=== PATIENT | female | born 1945 | race Caucasian/White ===

== ENCOUNTER 2016-05-20 10:41 | Emergency (ER) | payer OTHER ==
--- NOTE | 2016-05-20 11:55 | ED NURSING NOTES ---
Clinical Report - Nurses [facility] [address] [place] [address] 05/20/2016 10:41 [id number] Triage time 10:52 May 20 2016. Acuity: LEVEL 2. Chief Complaint: FALL. Alert. No acute distress. MARII COMA SCORE: [place] Coma Scale: 15- eyes open spontaneously (4); best verbal response- oriented x 4 (5); best motor response- obeys commands (6). --10:57 Sheeba Wing R.N. 10:50 05/20/16. BP: 172/77. HR: 70. RR: 18. O2 saturation: 98%. Temp: 98.2 F. Pain level now 5/10. --10:57 Sheeba Wing R.N. Weight: 91.6 kg stated. Height/Length: 63 inches Per Patient. BMI: 35.8. --10:48 Sheeba Wing R.N. Medications Albuterol Inhalation 2 puffs, PRN. Amitriptyline HCl Oral 150 mg, at bedtime. Atenolol Oral 50 mg, at bedtime. Benazepril HCl Oral (Tablet 20 mg) 1 tablet, bid. Ibuprofen Oral 800 mg, 2x a day/3x/day as needed. Sertraline HCl Oral 100 mg, daily. Simvastatin Oral 40 mg, at bedtime. --10:54 Sheeba Wing R.N. Medication/allergy information source: the patient. --10:57 Sheeba Wing R.N. Allergies Codeine.(itching) --10:54 Sheeba Wing R.N. TraZODone HCl. --10:54 Sheeba Wing R.N. History Arrived by private vehicle. Historian: patient. Accompanied by family. Primary physician (Dr. Aviles). ( Slipped and fell on the ice on the sidewalk while chasing her dog. No LOC, remembers the entire event. PERRL. Swelling on the right side of head.). Location of injuries: right parietal area. This occurred just prior to arrival. 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 Trauma activation: Pre-hospital notification of patient arrival was not received. PAST MEDICAL HX: Has not received seasonal influenza immunization. SOCIAL HX: Never smoker. Alcohol use. No drug use. No infectious disease exposure. FALL RISK ASSESSMENT: Fall risk assessment completed. No fall risk identified. NUTRITIONAL RISK ASSESSMENT: The nutritional risk assessment revealed no deficiencies. FUNCTIONAL ASSESSMENT: Functional assessment: no impairments noted. LEARNING NEEDS ASSESSMENT: The learning needs assessment revealed no barriers. SKIN INTEGRITY ASSESSMENT: Skin integrity risk assessment completed. No skin integrity risk identified. --10:57 Sheeba Wing R.N. PROBLEMS: Atypical Chest Pain. Myofascial Strain. GI Disease. Heart Disease. Asthma. Fall. Sprain. Concussion. Chronic diarrhea. Migraine Headache. Fibromyalgia. Hypercholesterolemia. Hypertension. Hiatal Hernia. Gastroesophageal Reflux Disease. --10:56 Sheeba Wing R.N. Abdominal Pain [RuleOut]. --10:56 Sheeba Wing R.N. ADDITIONAL SURGERIES: Cardiac Procedures. Cholecystectomy. Hysterectomy. Knee Surgery. Left foot excision. Previous Abdominal Surgery. Rt breast biopsy. --10:56 Sheeba Wing R.N. Interventions ID band on patient. To room. --10:57 Sheeba Wing R.N. PHYSICAL ASSESSMENT To room via wheelchair. GENERAL / NEURO / PSYCH: Alert. Oriented X 4. Appears in no acute distress. Marii Coma Scale: 15- eyes open spontaneously (4); best verbal response- oriented x 4 (5); best motor response- obeys commands (6). HEENT: Pupils equal, round and reactive to light. CVS: Capillary refill less than 2 seconds. SKIN: Skin is warm and dry. --12:02 Sheeba Wing R.N. NURSING PROGRESS NOTES Care transferred and report given. --10:57 Sheeba Wing R.N. 12:02 05/20/16. BP: 184/79. HR: 84. RR: 18. O2 saturation: 99%. Pain level now 5/10. --12:03 Sheeba Wing R.N. DISPOSITION / DISCHARGE Condition at departure: unchanged and stable. No learning barriers present. Discharge instructions provided and reviewed with the patient and family. Patient and family verbalized understanding. Written instructions provided in Telugu. The patient was discharged by the physician. She was discharged home and accompanied by family. She left the Emergency Department ambulatory and via private vehicle. Family member driving. --12:45 Sheeba Wing R.N. Departure time: 12:30 May 20 2016. --12:45 Sheeba Wing R.N. Locked/Released at 05/20/2016 12:48 by Sheeba Wing R.N.
--- NOTE | 2016-05-20 11:55 | ED NURSING NOTES ---
Clinical Report - Nurses [facility] [address] [place] [address] 05/20/2016 10:41 [id number] Triage time 10:52 May 20 2016. Acuity: LEVEL 2. Chief Complaint: FALL. Alert. No acute distress. MARII COMA SCORE: [place] Coma Scale: 15- eyes open spontaneously (4); best verbal response- oriented x 4 (5); best motor response- obeys commands (6). --10:57 Sheeba Wing R.N. 10:50 05/20/16. BP: 172/77. HR: 70. RR: 18. O2 saturation: 98%. Temp: 98.2 F. Pain level now 5/10. --10:57 Sheeba Wing R.N. Weight: 91.6 kg stated. Height/Length: 63 inches Per Patient. BMI: 35.8. --10:48 Sheeba Wing R.N. Medications Albuterol Inhalation 2 puffs, PRN. Amitriptyline HCl Oral 150 mg, at bedtime. Atenolol Oral 50 mg, at bedtime. Benazepril HCl Oral (Tablet 20 mg) 1 tablet, bid. Ibuprofen Oral 800 mg, 2x a day/3x/day as needed. Sertraline HCl Oral 100 mg, daily. Simvastatin Oral 40 mg, at bedtime. --10:54 Sheeba Wing R.N. Medication/allergy information source: the patient. --10:57 Sheeba Wing R.N. Allergies Codeine.(itching) --10:54 Sheeba Wing R.N. TraZODone HCl. --10:54 Sheeba Wing R.N. History Arrived by private vehicle. Historian: patient. Accompanied by family. Primary physician (Dr. Aviles). ( Slipped and fell on the ice on the sidewalk while chasing her dog. No LOC, remembers the entire event. PERRL. Swelling on the right side of head.). Location of injuries: right parietal area. This occurred just prior to arrival. 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 Trauma activation: Pre-hospital notification of patient arrival was not received. PAST MEDICAL HX: Has not received seasonal influenza immunization. SOCIAL HX: Never smoker. Alcohol use. No drug use. No infectious disease exposure. FALL RISK ASSESSMENT: Fall risk assessment completed. No fall risk identified. NUTRITIONAL RISK ASSESSMENT: The nutritional risk assessment revealed no deficiencies. FUNCTIONAL ASSESSMENT: Functional assessment: no impairments noted. LEARNING NEEDS ASSESSMENT: The learning needs assessment revealed no barriers. SKIN INTEGRITY ASSESSMENT: Skin integrity risk assessment completed. No skin integrity risk identified. --10:57 Sheeba Wing R.N. PROBLEMS: Atypical Chest Pain. Myofascial Strain. GI Disease. Heart Disease. Asthma. Fall. Sprain. Concussion. Chronic diarrhea. Migraine Headache. Fibromyalgia. Hypercholesterolemia. Hypertension. Hiatal Hernia. Gastroesophageal Reflux Disease. --10:56 Sheeba Wing R.N. Abdominal Pain [RuleOut]. --10:56 Sheeba Wing R.N. ADDITIONAL SURGERIES: Cardiac Procedures. Cholecystectomy. Hysterectomy. Knee Surgery. Left foot excision. Previous Abdominal Surgery. Rt breast biopsy. --10:56 Sheeba Wing R.N. Interventions ID band on patient. To room. --10:57 Sheeba Wing R.N. PHYSICAL ASSESSMENT To room via wheelchair. GENERAL / NEURO / PSYCH: Alert. Oriented X 4. Appears in no acute distress. Marii Coma Scale: 15- eyes open spontaneously (4); best verbal response- oriented x 4 (5); best motor response- obeys commands (6). HEENT: Pupils equal, round and reactive to light. CVS: Capillary refill less than 2 seconds. SKIN: Skin is warm and dry. --12:02 Sheeba Wing R.N. NURSING PROGRESS NOTES Care transferred and report given. --10:57 Sheeba Wing R.N. 12:02 05/20/16. BP: 184/79. HR: 84. RR: 18. O2 saturation: 99%. Pain level now 5/10. --12:03 Sheeba Wing R.N. DISPOSITION / DISCHARGE Condition at departure: unchanged and stable. No learning barriers present. Discharge instructions provided and reviewed with the patient and family. Patient and family verbalized understanding. Written instructions provided in Italian. The patient was discharged by the physician. She was discharged home and accompanied by family. She left the Emergency Department ambulatory and via private vehicle. Family member driving. --12:45 Sheeba Wing R.N. Departure time: 12:30 May 20 2016. --12:45 Sheeba Wing R.N. Locked/Released at 05/20/2016 12:48 by Sheeba Wing R.N.
--- NOTE | 2016-05-20 11:55 | ED CLINICAL REPORT ---
Clinical Report - Physicians/Mid Levels [facility] [address] [place] [address] 05/20/2016 10:41 [id number] Time Seen: 10:57. Arrived- By private vehicle. Historian- patient. HISTORY OF PRESENT ILLNESS Chief Complaint: FALL. Location of injuries- head. The injury occurred just prior to arrival. Fell while running and landed on the ground; slipped. Occurred at home. The patient complains of moderate pain. The patient sustained a blow to the head. No neck pain or loss of consciousness. Not dazed. REVIEW OF SYSTEMS All systems otherwise negative, except as recorded above. PAST HISTORY PCP - LUCIE CONWAY Problems: Atypical Chest Pain. Myofascial Strain. GI Disease. Heart Disease. Asthma. Fall. Sprain. Concussion. Chronic diarrhea. Migraine Headache. Fibromyalgia. Hypercholesterolemia. Hypertension. Hiatal Hernia. Gastroesophageal Reflux Disease. Additional Surgeries: Cardiac Procedures. Cholecystectomy. Hysterectomy. Knee Surgery. Left foot excision. Previous Abdominal Surgery. Rt breast biopsy. Medications: Albuterol Inhalation 2 puffs, PRN. Amitriptyline HCl Oral 150 mg, at bedtime. Atenolol Oral 50 mg, at bedtime. Benazepril HCl Oral (Tablet 20 mg) 1 tablet, bid. Ibuprofen Oral 800 mg, 2x a day/3x/day as needed. Sertraline HCl Oral 100 mg, daily. Simvastatin Oral 40 mg, at bedtime. Allergies: Codeine.(itching) TraZODone HCl. SOCIAL HISTORY Never smoker. Occasional alcohol use. No drug use. Is a local resident. FAMILY HISTORY No significant family medical history. ADDITIONAL NOTES The nursing notes have been reviewed. PHYSICAL EXAM Vital Signs: 05/20/2016 10:50 BP: 172/77. HR: 70. RR: 18. O2 saturation: 98%. Temp: 98.2 F. Have been reviewed. Appearance: Alert. No acute distress. Head: Right parietal area: mild tenderness and swelling and medium ecchymosis. Eyes: Pupils equal, round and reactive to light. EOM intact. ENT: No dental injury. Pharynx normal. Neck: Painless ROM. Non-tender. No vertebral tenderness. CVS: Heart sounds normal. Respiratory: Breath sounds normal. Abdomen: No visible injury. Soft and nontender. Bowel sounds normal. No organomegaly. No mass. Back: No tenderness. ROM normal. Skin: Skin intact. Skin warm and dry. Normal skin color. Normal skin turgor. Extremities: Normal inspection. Pelvis stable. Extremities atraumatic. No lower extremity edema. Neuro: No motor deficit. No sensory deficit. PROGRESS AND PROCEDURES Course of Care: Patient is stable. Patient/family counseled. Old medical records reviewed. Disposition: Discharged. Condition: stable. CLINICAL IMPRESSION Minor closed head injury. No loss of consciousness. Contusion with soft tissue hematoma to the scalp. INSTRUCTIONS Apply ice. Don't apply ice directly to skin and don't use while asleep. No driving or operating machinery while taking medication. Warnings: HEAD INJURY PRECAUTIONS: An observer must check on the patient every 2 hours for the next 24 hours to confirm that the patient responds as expected, is not confused, has no new weakness or numbness, and has no other problems. GENERAL WARNINGS: Return or contact your physician immediately if your condition worsens or changes unexpectedly, if not improving as expected, or if other problems arise. Your Current Medications: CONTINUE TAKING THE FOLLOWING MEDICATIONS: Albuterol Inhalation : 2 puffs PRN. Amitriptyline HCl Oral : 150 mg at bedtime. Atenolol Oral : 50 mg at bedtime. Benazepril HCl Oral : Tablet 20 mg, 1 tablet bid. Ibuprofen Oral : 800 mg 2x a day/3x/day, prn. Sertraline HCl Oral : 100 mg daily. Simvastatin Oral : 40 mg at bedtime. Prescription Medications: Ultram 50 mg: take 1-2 orally every 6 hours as needed for pain. Dispense fifteen (15). No refills. Substitution is permissible. Understanding of the discharge instructions verbalized by patient. (Electronically signed by Hudson Solitario MD 05/22/2016 2:07)
--- NOTE | 2016-05-22 02:07 | ED MED RECONCILIATION SUMMARY ---
Patient: STEVE MORTON [facility] Medication Reconciliation Report [facility] VisitID: [id number] [place] [address] 71y, F Registration Date/Time: 05/20/2016 Weight: 91.6 kg Height/Length: 63 in. BMI: 35.8 ALLERGIES: Codeine, TraZODone HCl The patient's Home Medications are listed below: CONTINUE TAKING THE FOLLOWING MEDICATIONS: Albuterol Inhalation 2 puffs, PRN Amitriptyline HCl Oral 150 mg, at bedtime Atenolol Oral 50 mg, at bedtime Benazepril HCl Oral (20 mg) 1 tablet, bid Ibuprofen Oral 800 mg, 2x a day/3x/day Sertraline HCl Oral 100 mg, daily Simvastatin Oral 40 mg, at bedtime The source(s) of the original Home Medication information: patient The following Medications were given to the patient in the Emergency Department: None. The following Medications were prescribed to the patient: Ultram 50 mg: take 1-2 orally every 6 hours as needed for pain. Dispense fifteen (15). No refills. Substitution is permissible. -- Hudson Solitario MD
--- NOTE | 2016-05-22 02:07 | ED MAR SUMMARY ---
..... Medication Administration Record [facility] [address], [place] [id number] Patient: STEVE MORTON Visit ID: [id number] 71y, F Weight: 91.6 kg Height/Length: 63 in BMI: 35.8 ALLERGIES: Codeine, TraZODone HCl
--- NOTE | 2016-05-22 02:07 | ED MED RECONCILIATION SUMMARY ---
Patient: STEVE MORTON [facility] Medication Reconciliation Report [facility] VisitID: [id number] [place] [address] 71y, F Registration Date/Time: 05/20/2016 Weight: 91.6 kg Height/Length: 63 in. BMI: 35.8 ALLERGIES: Codeine, TraZODone HCl The patient's Home Medications are listed below: CONTINUE TAKING THE FOLLOWING MEDICATIONS: Albuterol Inhalation 2 puffs, PRN Amitriptyline HCl Oral 150 mg, at bedtime Atenolol Oral 50 mg, at bedtime Benazepril HCl Oral (20 mg) 1 tablet, bid Ibuprofen Oral 800 mg, 2x a day/3x/day Sertraline HCl Oral 100 mg, daily Simvastatin Oral 40 mg, at bedtime The source(s) of the original Home Medication information: patient The following Medications were given to the patient in the Emergency Department: None. The following Medications were prescribed to the patient: Ultram 50 mg: take 1-2 orally every 6 hours as needed for pain. Dispense fifteen (15). No refills. Substitution is permissible. -- Hudson Solitario MD
--- NOTE | 2016-05-22 02:07 | ED DISCHARGE INSTRUCTIONS ---
Patient: STEVE MORTON General Instructions [facility] VisitID: [id number] [place] [address] 71y, F Registration Date/Time: 05/20/2016 Minor closed head injury. No loss of consciousness. Contusion with soft tissue hematoma to the scalp. INSTRUCTIONS Apply ice. Don't apply ice directly to skin and don't use while asleep. No driving or operating machinery while taking medication. Warnings: HEAD INJURY PRECAUTIONS: An observer must check on the patient every 2 hours for the next 24 hours to confirm that the patient responds as expected, is not confused, has no new weakness or numbness, and has no other problems. GENERAL WARNINGS: Return or contact your physician immediately if your condition worsens or changes unexpectedly, if not improving as expected, or if other problems arise. Your Current Medications: CONTINUE TAKING THE FOLLOWING MEDICATIONS: Albuterol Inhalation : 2 puffs PRN. Amitriptyline HCl Oral : 150 mg at bedtime. Atenolol Oral : 50 mg at bedtime. Benazepril HCl Oral : Tablet 20 mg, 1 tablet bid. Ibuprofen Oral : 800 mg 2x a day/3x/day, prn. Sertraline HCl Oral : 100 mg daily. Simvastatin Oral : 40 mg at bedtime. Prescription Medications: Ultram 50 mg: take 1-2 orally every 6 hours as needed for pain. Dispense fifteen (15). No refills. Substitution is permissible. Understanding of the discharge instructions verbalized by patient. ADDITIONAL INFORMATION Head Injury With Wake-Up (Adult) You have had a head injury. It does not appear serious at this time. Symptoms of a more serious problem (concussion, bruising, or bleeding in the brain) may appear later. Therefore, watch for the WARNING SIGNS listed below. Home Care: During the next 24 hours someone must stay with you. This person should wake you every 2 hours to check for the signs below. If you have swelling of the face or scalp, apply an ice pack (ice cubes in a plastic bag, wrapped in a towel) for 20 minutes every 1-2 hours until the swelling starts to go down. Do not use aspirin or ibuprofen (Motrin, Advil) after a head injury. You may use acetaminophen (Tylenol) to control pain, unless another pain medicine was prescribed. [NOTE: If you have chronic liver or kidney disease or ever had a stomach ulcer or GI bleeding, talk with your doctor before using these medicines.] For the next 24 hours: Do not take alcohol, sedatives, or medicines that make you sleepy. Do not drive or operate machinery. Avoid strenuous activities. No lifting or straining. If you have had any symptoms of a concussion today (nausea, vomiting, dizziness, confusion, headache, memory loss, or you were knocked out), do not return to sports or any activity that could result in another head injury until all symptoms are gone and you have been cleared by your doctor. A second head injury before fully recovering from the first one can lead to serious brain injury. Follow Up with your doctor if symptoms are not improving after 24 hours, or as directed. [NOTE: A radiologist will review any X-rays or CT scans that were taken. We will notify you of any new findings that may affect your care.] Get Prompt Medical Attention if any of the following WARNING SIGNS occur: Repeated vomiting Severe or worsening headache or dizziness Unusual drowsiness, or unable to awaken as usual Confusion or change in behavior or speech, memory loss, blurred vision Convulsion (seizure) Increasing scalp or face swelling Redness, warmth or pus from the swollen area Fluid drainage or bleeding from the nose or ears Head Injury With Wake-Up (Adult) You have had a head injury. It does not appear serious at this time. Symptoms of a more serious problem (concussion, bruising, or bleeding in the brain) may appear later. Therefore, watch for the WARNING SIGNS listed below. Home Care: During the next 24 hours someone must stay with you. This person should wake you every 2 hours to check for the signs below. If you have swelling of the face or scalp, apply an ice pack (ice cubes in a plastic bag, wrapped in a towel) for 20 minutes every 1-2 hours until the swelling starts to go down. Do not use aspirin or ibuprofen (Motrin, Advil) after a head injury. You may use acetaminophen (Tylenol) to control pain, unless another pain medicine was prescribed. [NOTE: If you have chronic liver or kidney disease or ever had a stomach ulcer or GI bleeding, talk with your doctor before using these medicines.] For the next 24 hours: Do not take alcohol, sedatives, or medicines that make you sleepy. Do not drive or operate machinery. Avoid strenuous activities. No lifting or straining. If you have had any symptoms of a concussion today (nausea, vomiting, dizziness, confusion, headache, memory loss, or you were knocked out), do not return to sports or any activity that could result in another head injury until all symptoms are gone and you have been cleared by your doctor. A second head injury before fully recovering from the first one can lead to serious brain injury. Follow Up with your doctor if symptoms are not improving after 24 hours, or as directed. [NOTE: A radiologist will review any X-rays or CT scans that were taken. We will notify you of any new findings that may affect your care.] Get Prompt Medical Attention if any of the following WARNING SIGNS occur: Repeated vomiting Severe or worsening headache or dizziness Unusual drowsiness, or unable to awaken as usual Confusion or change in behavior or speech, memory loss, blurred vision Convulsion (seizure) Increasing scalp or face swelling Redness, warmth or pus from the swollen area Fluid drainage or bleeding from the nose or ears Tramadol Hydrochloride Oral tablet What is this medicine? TRAMADOL (TRA ma dole) is a pain reliever. It is used to treat moderate to severe pain in adults. How should I use this medicine? Take this medicine by mouth with a full glass of water. Follow the directions on the prescription label. If the medicine upsets your stomach, take it with food or milk. Do not take more medicine than you are told to take. Talk to your electric motor repairing supervisor regarding the use of this medicine in children. Special care may be needed. What side effects may I notice from receiving this medicine? Side effects that you should report to your doctor or health direct care supervisor as soon as possible: allergic reactions like skin rash, itching or hives, swelling of the face, lips, or tongue breathing difficulties, wheezing confusion itching light headedness or fainting spells redness, blistering, peeling or loosening of the skin, including inside the mouth seizures Side effects that usually do not require medical attention (report to your doctor or health direct care supervisor if they continue or are bothersome): constipation dizziness drowsiness headache nausea, vomiting What may interact with this medicine? Do not take this medicine with any of the following medications: MAOIs like Carbex, Eldepryl, Marplan, Nardil, and Parnate This medicine may also interact with the following medications: alcohol or medicines that contain alcohol antihistamines benzodiazepines bupropion carbamazepine or oxcarbazepine clozapine cyclobenzaprine digoxin furazolidone linezolid medicines for depression, anxiety, or psychotic disturbances medicines for migraine headache like almotriptan, eletriptan, frovatriptan, naratriptan, rizatriptan, sumatriptan, zolmitriptan medicines for pain like pentazocine, buprenorphine, butorphanol, meperidine, nalbuphine, and propoxyphene medicines for sleep muscle relaxants naltrexone phenobarbital phenothiazines like perphenazine, thioridazine, chlorpromazine, mesoridazine, fluphenazine, prochlorperazine, promazine, and trifluoperazine procarbazine warfarin What if I miss a dose? If you miss a dose, take it as soon as you can. If it is almost time for your next dose, take only that dose. Do not take double or extra doses. Where should I keep my medicine? Keep out of the reach of children. Store at room temperature between 15 and 30 degrees C (59 and 86 degrees F). Keep container tightly closed. Throw away any unused medicine after the expiration date. What should I tell my health care provider before I take this medicine? They need to know if you have any of these conditions: brain tumor depression drug abuse or addiction head injury if you frequently drink alcohol containing drinks kidney disease or trouble passing urine liver disease lung disease, asthma, or breathing problems seizures or epilepsy suicidal thoughts, plans, or attempt; a previous suicide attempt by you or a family member an unusual or allergic reaction to tramadol, codeine, other medicines, foods, dyes, or preservatives or trying to get breast-feeding What should I watch for while using this medicine? Tell your doctor or health direct care supervisor if your pain does not go away, if it gets worse, or if you have new or a different type of pain. You may develop tolerance to the medicine. Tolerance means that you will need a higher dose of the medicine for pain relief. Tolerance is normal and is expected if you take this medicine for a long time. Do not suddenly stop taking your medicine because you may develop a severe reaction. Your body becomes used to the medicine. This does NOT mean you are addicted. Addiction is a behavior related to getting and using a drug for a non-medical reason. If you have pain, you have a medical reason to take pain medicine. Your doctor will tell you how much medicine to take. If your doctor wants you to stop the medicine, the dose will be slowly lowered over time to avoid any side effects. You may get drowsy or dizzy. Do not drive, use machinery, or do anything that needs mental alertness until you know how this medicine affects you. Do not stand or sit up quickly, especially if you are an older patient. This reduces the risk of dizzy or fainting spells. Alcohol can increase or decrease the effects of this medicine. Avoid alcoholic drinks. You may have constipation. Try to have a bowel movement at least every 2 to 3 days. If you do not have a bowel movement for 3 days, call your doctor or health direct care supervisor. Your mouth may get dry. Chewing sugarless gum or sucking hard candy, and drinking plenty of water may help. Contact your doctor if the problem does not go away or is severe. You have been given the following additional information: HEAD INJURY with Wake-Up (Adult) HEAD INJURY with Wake-Up (Adult) Tramadol Hydrochloride Oral tablet No driving or operating machinery while taking medication. (Electronically signed by Hudson Solitario MD 05/22/2016 2:07)
--- NOTE | 2016-05-22 02:07 | ED MAR SUMMARY ---
..... Medication Administration Record [facility] [address], [place] [id number] Patient: STEVE MORTON Visit ID: [id number] 71y, F Weight: 91.6 kg Height/Length: 63 in BMI: 35.8 ALLERGIES: Codeine, TraZODone HCl
== END 2016-05-20 12:30 | disposition home or self-care (01) ==
LOC: ED SRH 10:41
DX: S00.03XA Contusion of scalp, initial encounter (principal); W00.0XXA Fall on same level due to ice and snow, initial encounter; Y93.02 Activity, running; Y92.009 Unspecified place in unspecified non-institutional (private) residence as the place of occurrence of the external cause; Y99.9 Unspecified external cause status; I10 Essential (primary) hypertension; K21.9 Gastro-esophageal reflux disease without esophagitis; J45.909 Unspecified asthma, uncomplicated; Z79.899 Other long term (current) drug therapy; Z88.5 Allergy status to narcotic agent

== ENCOUNTER 2016-07-04 11:39 | Emergency (ER) | payer OTHER ==
--- NOTE | 2016-07-04 12:28 | DIAGNOSTIC IMAGING REPORT ---
PROCEDURE: XR ANKLE 3 OR 4 VIEWS - RIGHT INDICATION: TRAUMA/INJURY TECHNIQUE: Four views. COMPARISON: None. FINDINGS: Osseous structures and joint spaces are normal. IMPRESSION: 1. Normal right ankle.
--- NOTE | 2016-07-04 13:14 | ED ORDER SUMMARY ---
..... Patient: STEVE MORTON OrderSheet [facility] VisitID: [id number] [address] [place] [address] 71y, F Registration Date/Time: 07/04/2016 ORDER SHEET Weight: 91.6 kg (stated) Allergies: No Known Drug Allergy GENERAL ORDERS: Ankle 3 or 4V Right Urgent (12:06 07/04/2016 Conrad Can) (Ack 12:11 Yeni) (13:30 Monica R.N.) Orthopedic Boot (13:01 07/04/2016 Conrad Can) (Ack 13:14 Yeni) (13:14 Yeni) MEDICATION ORDERS: Hydrocodone-APAP PO 5/325 mg (NOW, HIGH ALERT MEDICATION) (13:12 07/04/2016 Conrad Can) (13:33 Monica R.N.) IV FLUIDS: ORDER SHEET NOTES: [Electronically signed by Jesus Zhang Dr. (13:19 07/04/2016)] [Electronically signed by Evette Hsieh R.N. (13:54 07/04/2016)] [Electronically locked/signed by Evette Hsieh R.N. (13:54 07/04/2016)]
--- NOTE | 2016-07-04 13:14 | ED NURSING NOTES ---
Clinical Report - Nurses [facility] [address] [place] [address] 07/04/2016 11:39 Patient: STEVE MORTON TRIAGE Triage time 1137 AM. Acuity: LEVEL 4. Chief Complaint: FALL DOWN 2 STAIRS while walking, onto a concrete surface and landed on their arms with hands extended and knees (going down the stairs, missed a step). Alert. No acute distress. SEPSIS SCREEN: Sepsis Screen. Negative (no infection suspected/documented). MARII COMA SCORE: Marii Coma Scale: 15- eyes open spontaneously (4); best verbal response- oriented x 4 (5); best motor response- obeys commands (6). --11:52 Evette Hsieh R.N. 11:38 07/04/16. BP: 170/67. HR: 79. RR: 15. O2 saturation: 100% on room air. Temp: 98 F (oral). Pain level now: 11/21. --11:52 Evette Hsieh R.N. Weight: 91.6 kg stated. Height/Length: 63 inches Per Patient. BMI: 35.8. --11:38 Evette Hsieh R.N. Medications Lisinopril Oral. --11:39 Evette Hsieh R.N. Ibuprofen Oral. --11:39 Evette Hsieh R.N. Zoloft Oral. --11:40 Evette Hsieh R.N. Amitriptyline HCl Oral. --11:42 Evette Hsieh R.N. Medication/allergy information source: the patient. --11:52 Evette Hsieh R.N. Allergies No Known Drug Allergy. --11:39 Evette Hsieh R.N. History Arrived by private vehicle. Historian: patient. Accompanied by family. Primary physician (Dr. Elias). ( Pt states going down the stairs at her daughter house when she thought she had no more steps to go, missed the last step). This occurred today (30 minutes). Occurred at home. No loss of consciousness. No alteration in mental status. Treatment EVALUATION ASSISTANT: Ice. Trauma activation: Pre-hospital notification of patient arrival was not received. PAST MEDICAL HX: Tetanus status: up-to-date. Immunizations: up-to-date. The patient is post-menopausal. SOCIAL HX: Never smoker. Occasional alcohol use; consumes wine by the glass. Last drink was 5 months ago. No drug use. No infectious disease exposure. ABUSE ASSESSMENT: No report of abuse. SELF HARM ASSESSMENT: A self harm assessment was performed. The patient answered "no" to the question "Do you have thoughts of harming or killing yourself?" and "Have you recently had thoughts about harming or killing others?". FALL RISK ASSESSMENT: Fall risk assessment completed. No fall risk identified. NUTRITIONAL RISK ASSESSMENT: The nutritional risk assessment revealed no deficiencies. FUNCTIONAL ASSESSMENT: Functional assessment: no impairments noted. LEARNING NEEDS ASSESSMENT: The learning needs assessment revealed no barriers. SKIN INTEGRITY ASSESSMENT: Skin integrity risk assessment completed. No skin integrity risk identified. --11:52 Evette Hsieh R.N. Interventions ID band on patient. --11:52 Evette Hsieh R.N. PHYSICAL ASSESSMENT GENERAL / NEURO / PSYCH: Alert. Oriented X 4. Appears in no acute distress. HEENT: Pupils equal, round and reactive to light. RESPIRATORY: Respirations not labored. Breath sounds within normal limits. CVS: Pulses: right dorsalis pedis 4+, left dorsalis pedis 4+, right posterior tibial 4+ and left posterior tibial 4+. Capillary refill less than 2 seconds. EXTREMITIES: Neuro-vascular status intact to the extremity. Right arm: tenderness. Right hand: tenderness. Left arm: tenderness. Left hand: tenderness. Right leg: tenderness and tenderness. Right lateral ankle: tenderness. Limited ROM secondary to pain. No deformity. Right anterior ankle: tenderness. Limited movement secondary to pain. No deformity. Base of the right 5th metatarsal: tenderness. Right foot. Left leg: tenderness. SKIN: Skin intact. Skin is warm and dry. --11:55 Evette Hsieh R.N. NURSING PROGRESS NOTES The initial plan of care for this patient has been created This plan of care was discussed with the patient. Warming measures: blanket applied. Reassurance given. Two patient identifiers checked. Call light placed in reach. Side rails up x 1. Bed placed in lowest position. Brakes of bed on. --11:55 Evette Hsieh R.N. 13:33 07/04/2016 Hydrocodone-APAP (Hydrocodone-Acetaminophen) PO 5/325 mg Tablets 1 tab given. Allergies verified, confirmed 5 rights and sedative warning given to the patient. --13:33 Evette Hsieh R.N. late entry - 13:00 PM. Reassurance given. Patient identifiers checked. --13:34 Evette Hsieh R.N. 13:34 07/04/16. BP: 148/73. HR: 85. RR: 15. O2 saturation: 100%. Pain level now: 11/21. --13:34 Evette Hsieh R.N. The patient is calm. Overall patient status is the same- she states feels the same. ( Ortho boot applied as ordered). GENERAL / NEURO / PSYCH: The patient reports pain. --13:35 Evette Hsieh R.N. 13:43 07/04/2016 Hydrocodone-APAP PO Response: no adverse reaction. --13:53 Evette Hsieh R.N. DISPOSITION / DISCHARGE Departure time: 1352 PM. Condition at departure: improved and stable. The goals identified in the patient's plan of care were met. No learning barriers present. Discharge instructions provided and reviewed with the patient. Reviewed warnings (cruthches and follow up with MD). Reviewed medication(s) side effects, precautions, dosing and course information. Prescription(s) given to the patient (Vicodin). Activity restrictions (rest) reviewed. Patient verbalized understanding. Written instructions provided in Com[place]. No diet instructions. The patient was discharged by the physician. She was discharged home and accompanied by family. She left the Emergency Department ambulatory and via private vehicle. Family member driving. MARII COMA SCORE: [place] Coma Scale: 15- eyes open spontaneously (4); best verbal response- oriented x 4 (5); best motor response- obeys commands (6). --13:53 Evette Hsieh R.N. 13:33 07/04/16. BP: 154/59. HR: 73. RR: 15. O2 saturation: 100% on room air. Temp: 98.2 F (oral). Pain level now: 09/21. --13:53 Evette Hsieh R.N. ( Ortho boot in place, pt expresses understanding of usage and no need for crutches teaching since pt has her own). --13:54 Evette Hsieh R.N. Locked/Released at 07/04/2016 13:54 by Evette Hsieh R.N.
--- NOTE | 2016-07-04 13:14 | ED ORDER SUMMARY ---
..... Patient: STEVE MORTON OrderSheet [facility] VisitID: [id number] [address] [place] [address] 71y, F Registration Date/Time: 07/04/2016 ORDER SHEET Weight: 91.6 kg (stated) Allergies: No Known Drug Allergy GENERAL ORDERS: Ankle 3 or 4V Right Urgent (12:06 07/04/2016 Conrad Can) (Ack 12:11 Yeni) (13:30 Monica R.N.) Orthopedic Boot (13:01 07/04/2016 Conrad Can) (Ack 13:14 Yeni) (13:14 Yeni) MEDICATION ORDERS: Hydrocodone-APAP PO 5/325 mg (NOW, HIGH ALERT MEDICATION) (13:12 07/04/2016 Conrad Can) (13:33 Monica R.N.) IV FLUIDS: ORDER SHEET NOTES: [Electronically signed by Jesus Zhang Dr. (13:19 07/04/2016)] [Electronically signed by Evette Hsieh R.N. (13:54 07/04/2016)] [Electronically locked/signed by Evette Hsieh R.N. (13:54 07/04/2016)]
--- NOTE | 2016-07-04 13:14 | ED CLINICAL REPORT ---
Clinical Report - Physicians/Mid Levels [facility] [address] [place] [address] 07/04/2016 11:39 [id number] Time Seen: 11:43. Arrived- By private vehicle. Historian- patient. HISTORY OF PRESENT ILLNESS Chief Complaint: FALL. Location of injuries- right ankle. The injury occurred just prior to arrival. Fell down 2 stairs while walking; tripped. Occurred at home. The patient complains of mild pain in the right lower extremity (ankle). No blow to the head, neck pain or loss of consciousness. Not dazed. REVIEW OF SYSTEMS The patient complains of pain on weight bearing. No numbness, weakness or laceration. All systems otherwise negative, except as recorded above. PAST HISTORY Atypical Chest Pain. Myofascial Strain. GI Disease. Heart Disease. Asthma. Fall. Sprain. Concussion. Chronic diarrhea. Migraine Headache. Fibromyalgia. Hypercholesterolemia. Hypertension. Hiatal Hernia. Gastroesophageal Reflux Disease. Additional Surgeries: Cardiac Procedures. Cholecystectomy. Hysterectomy. Knee Surgery. Left foot excision. Previous Abdominal Surgery. Rt breast biopsy. SOCIAL HISTORY Never smoker. Occasional alcohol use. No drug use. ADDITIONAL NOTES The nursing notes have been reviewed. PHYSICAL EXAM Vital Signs: 07/04/2016 11:38 BP: 170/67. HR: 79. RR: 15. O2 saturation: 100%. Temp: 98 F. Pain level now: 8/10. Have been reviewed. Hypertensive. Heart rate normal. Respiratory rate normal. Temperature normal. Oxygen saturation normal. Appearance: Alert. Oriented X3. No acute distress. Head: Head non-tender. No swelling of head. No Franco's sign or raccoon eyes. Eyes: Pupils equal, round and reactive to light. EOM intact. ENT: No dental injury. Neck: Painless ROM. Non-tender. Skin: Skin intact. Skin warm and dry. Extremities: Right knee. Neurovascular intact distally. No tenderness, swelling or deformity. No limitation in ROM. Left knee. No tenderness or swelling. No limitation in ROM. Right ankle: mild tenderness, moderate swelling and medium sized ecchymosis. Limited ROM secondary to pain (diminished plantar flexion, dorsiflexion, inversion and eversion). Neurovascular intact distally. No erythema or deformity. Left ankle. Neurovascular intact distally. No erythema, tenderness, swelling, ecchymosis or deformity. No limitation in ROM. Neuro: Oriented X 3. No motor deficit. No sensory deficit. LABS, X-RAYS, AND EKG Rt Ankle X-ray: No fracture. Normal alignment. No bony lesion, air in the soft tissue or foreign body. Joint spaces normal. Soft tissue swelling. Views: 3 view ankle series. Technique: good. The X-rays were independently viewed by me and interpreted contemporaneously by me. Prior films were not available for comparison. Interpretation time: 13:13. PROGRESS AND PROCEDURES Disposition: Discharged home in good and improved condition. Condition: good. CLINICAL IMPRESSION Sprain of the right ankle. INSTRUCTIONS Apply ice for 20 minutes four times a day until better. Don't apply ice directly to skin. Use crutches until released. Wear boot orthosis until released. No weight bearing on right leg until released. Your Current Medications: CONTINUE TAKING THE FOLLOWING MEDICATIONS: Amitriptyline HCl Oral. Amitriptyline HCl Oral. Amitriptyline HCl Oral. Ibuprofen Oral. Lisinopril Oral. Zoloft Oral. Prescription Medications: Hydrocodone/APAP 5mg / 325mg: take 1 orally every 6 hours as needed for pain. Dispense ten (10). No refill. Follow-up: Follow up with your doctor in about four days. Call for an appointment. Blood pressure screening was not performed during this visit because the patient has an active diagnosis of hypertension. The patient should follow up with a primary care provider for blood pressure management. (Electronically signed by Jesus Zhang Dr. 07/04/2016 13:19)
--- NOTE | 2016-07-04 13:54 | ED DISCHARGE INSTRUCTIONS ---
Patient: STEVE MORTON General Instructions [facility] VisitID: [id number] [place] [address] 71y, F Registration Date/Time: 07/04/2016 Sprain of the right ankle. INSTRUCTIONS Apply ice for 20 minutes four times a day until better. Don't apply ice directly to skin. Use crutches until released. Wear boot orthosis until released. No weight bearing on right leg until released. Your Current Medications: CONTINUE TAKING THE FOLLOWING MEDICATIONS: Amitriptyline HCl Oral. Amitriptyline HCl Oral. Amitriptyline HCl Oral. Ibuprofen Oral. Lisinopril Oral. Zoloft Oral. Prescription Medications: Hydrocodone/APAP 5mg / 325mg: take 1 orally every 6 hours as needed for pain. Dispense ten (10). No refill. Follow-up: Follow up with your doctor in about four days. Call for an appointment. Blood pressure screening was not performed during this visit because the patient has an active diagnosis of hypertension. The patient should follow up with a primary care provider for blood pressure management. ADDITIONAL INFORMATION Sprain, Ankle,With X-Ray A sprain is an injury to the ligaments or capsule that holds a joint together. There are no broken bones. Most sprains take from four to six weeks to heal. If the ligament is completely torn (severe sprain), it can take several months to recover. Mild to moderate sprains may be treated with an elastic wrap or an in-shoe splint to provide support and prevent re-injury. A mild sprain may not require any additional support. A severe sprain may require surgery to repair. Home care The following guidelines will help you care for your injury at home: Stay off the injured leg as much as possible until you can walk on it without pain. If you have a lot of pain with walking, crutches or a walker may be prescribed. (These can be rented or purchased at many pharmacies and surgical or orthopedic supply stores). Follow your doctor's advice regarding when to begin bearing weight on that leg. Keep your leg elevated to reduce pain and swelling. When sleeping, place a pillow under the injured leg. When sitting, support the injured leg so it is level with your waist. This is very important during the first 48 hours. Apply an ice pack (ice cubes in a plastic bag, wrapped in a towel) over the injured area for 20 minutes every 12 hours the first day. You can place the ice pack directly over the splint/cast. If you were given a boot, open it to apply the ice pack. Continue with ice packs 34 times a day for the next two days, then as needed for the relief of pain and swelling. You may use acetaminophen or ibuprofen to control pain, unless another pain medicine was prescribed. If you have chronic liver or kidney disease or ever had a stomach ulcer or GI bleeding, talk with your doctor before using these medicines. You may return to sports after healing, when you can run without pain. A sprained ankle is at risk for re-injury during the first six weeks. During that time, protect your ankle with an in-shoe splint that prevents tilting of your ankle from side to side. This is very important if you do active work or play sports during that time. Follow-up care Any X-rays you had today dont show any broken bones, breaks, or fractures. Sometimes fractures dont show up on the first X-ray. Bruises and sprains can sometimes hurt as much as a fracture. These injuries can take time to heal completely. If your symptoms dont improve or they get worse, talk with your doctor. You may need a repeat X-ray. When to seek medical care Get prompt medical attention if any of the following occur: The plaster cast or splint gets wet or soft The fiberglass cast or splint gets wet and does not dry for 24 hours Pain or swelling increases, or redness appears Toes become cold, blue, numb or tingly Re-injure your ankle Crutch Walking Crutch Adjustment Make sure the crutches you use are adjusted to fit you. When you stand, there should be room to fit 2-3 fingers between the top of the crutch and your armpit. Your elbow should be slightly bent when holding the hand photography teacher. Crutch Walking: Place the crutches forward 12" in front of and 6" to the side of your feet. Lean your weight forward as you push down on the handgrips. Your weight should be on your hands and yourstrong leg, not your armpits . Let your body swing through, landing on the strong leg. Advance the crutches forward again. The crutch and the injured leg should move together. Going Up Steps: ("Up with the good") With both crutches on the same step as your feet, push down on the handgrips. Balancing with very light pressure on the weak leg, let your hands support your weight as you raise your strong leg onto the next higher step. Transfer all your weight to your strong leg (still bent) as you move the crutches up to the next step alongside the strong leg. With your weight evenly balanced on the two crutches and your strong leg, straighten your strong knee as you raise the weak leg up to the next step. Going Down Steps: ("Down with the bad") With both crutches on the same step as your feet, push down on the handgrips. With your weight evenly balanced on the two crutches and your strong leg, bend your strong knee as you lower the weak leg down to the next step. Let your strong leg support you (still bent) as you move the crutches down alongside the weak leg. Transfer your weight to your hands, balancing with very light pressure on the weak leg as you lower your strong leg alongside your weak leg. [employer] Sp-Walker Boot Traditional splints and casts for the foot and ankle protect the injury by preventing movement at the joints. However, many injuries heal better and faster if the injured joint can be moved, while protected at the same time. This is the reason for using an [employer] Walker boot. This is a short boot that provides support and protection to the foot and ankle while allowing you to walk. It contains padded air cells that provide compression and help circulation. It is used for both foot and ankle injuries - both sprains and minor fractures. Ankle and foot sprains can take 4-6 weeks to heal. Persons with severe injuries or over age 60 may require more time to heal. During that time, you are prone to re-injury by suddenly twisting your foot or ankle again while the ligaments are still weak. When treating a sprain, the [employer] Walker boot should be worn whenever walking for at least four weeks, or as long as you continue to have ankle pain. Talk to your doctor for specific advice about the treatment of your condition. Air-Stirrup and SP-Walker are trademarks of [employer]. For more information about their products, see [email or web address]. Hydrocodone Bitartrate, Acetaminophen Oral tablet What is this medicine? ACETAMINOPHEN; HYDROCODONE (a set a RYDER gwendolyn fen; bella droe KOSanford done) is a pain reliever. It is used to treat mild to moderate pain. How should I use this medicine? Take this medicine by mouth. Swallow it with a full glass of water. Follow the directions on the prescription label. If the medicine upsets your stomach, take the medicine with food or milk. Do not take more than you are told to take. Talk to your grid inspector regarding the use of this medicine in children. This medicine is not approved for use in children. What side effects may I notice from receiving this medicine? Side effects that you should report to your doctor or health acute care physical therapist as soon as possible: allergic reactions like skin rash, itching or hives, swelling of the face, lips, or tongue breathing problems confusion feeling faint or lightheaded, falls stomach pain yellowing of the eyes or skin Side effects that usually do not require medical attention (report to your doctor or health acute care physical therapist if they continue or are bothersome): nausea, vomiting stomach upset What may interact with this medicine? alcohol antihistamines isoniazid medicines for depression, anxiety, or psychotic disturbances medicines for sleep muscle relaxants naltrexone narcotic medicines (opiates) for pain phenobarbital ritonavir tramadol What if I miss a dose? If you miss a dose, take it as soon as you can. If it is almost time for your next dose, take only that dose. Do not take double or extra doses. Where should I keep my medicine? Keep out of the reach of children. This medicine can be abused. Keep your medicine in a safe place to protect it from theft. Do not share this medicine with anyone. Selling or giving away this medicine is dangerous and against the law. Store at room temperature between 15 and 30 degrees C (59 and 86 degrees F). Protect from light. Keep container tightly closed. Throw away any unused medicine after the expiration date. Discard unused medicine and used packaging carefully. Pets and children can be harmed if they find used or lost packages. What should I tell my health care provider before I take this medicine? They need to know if you have any of these conditions: brain tumor Crohn's disease, inflammatory bowel disease, or ulcerative colitis drink more than 3 alcohol-containing drinks per day drug abuse or addiction head injury heart or circulation problems kidney disease or problems going to the bathroom liver disease lung disease, asthma, or breathing problems an unusual or allergic reaction to acetaminophen, hydrocodone, other opioid analgesics, other medicines, foods, dyes, or preservatives or trying to get breast-feeding What should I watch for while using this medicine? Tell your doctor or health acute care physical therapist if your pain does not go away, if it gets worse, or if you have new or a different type of pain. You may develop tolerance to the medicine. Tolerance means that you will need a higher dose of the medicine for pain relief. Tolerance is normal and is expected if you take the medicine for a long time. Do not suddenly stop taking your medicine because you may develop a severe reaction. Your body becomes used to the medicine. This does NOT mean you are addicted. Addiction is a behavior related to getting and using a drug for a non-medical reason. If you have pain, you have a medical reason to take pain medicine. Your doctor will tell you how much medicine to take. If your doctor wants you to stop the medicine, the dose will be slowly lowered over time to avoid any side effects. You may get drowsy or dizzy when you first start taking the medicine or change doses. Do not drive, use machinery, or do anything that may be dangerous until you know how the medicine affects you. Stand or sit up slowly. There are different types of narcotic medicines (opiates) for pain. If you take more than one type at the same time, you may have more side effects. Give your health care provider a list of all medicines you use. Your doctor will tell you how much medicine to take. Do not take more medicine than directed. Call emergency for help if you have problems breathing. The medicine will cause constipation. Try to have a bowel movement at least every 2 to 3 days. If you do not have a bowel movement for 3 days, call your doctor or health acute care physical therapist. Too much acetaminophen can be very dangerous. Do not take Tylenol (acetaminophen) or medicines that contain acetaminophen with this medicine. Many non-prescription medicines contain acetaminophen. Always read the labels carefully. You have been given the following additional information: Sprain, Ankle, With X-Ray Crutch Walking Walker Boot Hydrocodone Bitartrate, Acetaminophen Oral tablet No weight bearing on right leg until released. (Electronically signed by Jesus Zhang Dr. 07/04/2016 13:19)
--- NOTE | 2016-07-04 13:54 | ED MED RECONCILIATION SUMMARY ---
Patient: STEVE MORTON Medication Reconciliation Report [facility] VisitID: [id number] [address] [place] [address] 71y, F Registration Date/Time: 07/04/2016 Weight: 91.6 kg Height/Length: 63 in. BMI: 35.8 ALLERGIES: No Known Drug Allergy The patient's Home Medications are listed below: CONTINUE TAKING THE FOLLOWING MEDICATIONS: Amitriptyline HCl Oral Amitriptyline HCl Oral Amitriptyline HCl Oral Ibuprofen Oral Lisinopril Oral Zoloft Oral The source(s) of the original Home Medication information: patient The following Medications were given to the patient in the Emergency Department: Hydrocodone-APAP [PO] PO 1 tab, administered: 07/04/2016 1:33:00 PM The following Medications were prescribed to the patient: Hydrocodone/APAP 5mg / 325mg: take 1 orally every 6 hours as needed for pain. Dispense ten (10). No refill. -- Jesus Zhang Dr.
--- NOTE | 2016-07-04 13:54 | ED MAR SUMMARY ---
..... Medication Administration Record [facility] [address] [place] [address] Patient: STEVE MORTON Visit ID: [id number] 71y, F Weight: 91.6 kg Height/Length: 63 in BMI: 35.8 ALLERGIES: No Known Drug Allergy Given 13:33 07/04/2016 Evette Hsieh R.N. Medication Administered: HYDROCODONE-APAP [PO] (HYDROCODONE-ACETAMINOPHEN), Dose: 1 tab 5/325 mg Tablets PO. Medication Ordered: Hydrocodone-APAP PO 5/325 mg (NOW, HIGH ALERT MEDICATION).
--- NOTE | 2016-07-04 13:54 | ED DISCHARGE INSTRUCTIONS ---
Patient: STEVE MORTON General Instructions [facility] VisitID: [id number] [place] [address] 71y, F Registration Date/Time: 07/04/2016 Sprain of the right ankle. INSTRUCTIONS Apply ice for 20 minutes four times a day until better. Don't apply ice directly to skin. Use crutches until released. Wear boot orthosis until released. No weight bearing on right leg until released. Your Current Medications: CONTINUE TAKING THE FOLLOWING MEDICATIONS: Amitriptyline HCl Oral. Amitriptyline HCl Oral. Amitriptyline HCl Oral. Ibuprofen Oral. Lisinopril Oral. Zoloft Oral. Prescription Medications: Hydrocodone/APAP 5mg / 325mg: take 1 orally every 6 hours as needed for pain. Dispense ten (10). No refill. Follow-up: Follow up with your doctor in about four days. Call for an appointment. Blood pressure screening was not performed during this visit because the patient has an active diagnosis of hypertension. The patient should follow up with a primary care provider for blood pressure management. ADDITIONAL INFORMATION Sprain, Ankle,With X-Ray A sprain is an injury to the ligaments or capsule that holds a joint together. There are no broken bones. Most sprains take from four to six weeks to heal. If the ligament is completely torn (severe sprain), it can take several months to recover. Mild to moderate sprains may be treated with an elastic wrap or an in-shoe splint to provide support and prevent re-injury. A mild sprain may not require any additional support. A severe sprain may require surgery to repair. Home care The following guidelines will help you care for your injury at home: Stay off the injured leg as much as possible until you can walk on it without pain. If you have a lot of pain with walking, crutches or a walker may be prescribed. (These can be rented or purchased at many pharmacies and surgical or orthopedic supply stores). Follow your doctor's advice regarding when to begin bearing weight on that leg. Keep your leg elevated to reduce pain and swelling. When sleeping, place a pillow under the injured leg. When sitting, support the injured leg so it is level with your waist. This is very important during the first 48 hours. Apply an ice pack (ice cubes in a plastic bag, wrapped in a towel) over the injured area for 20 minutes every 12 hours the first day. You can place the ice pack directly over the splint/cast. If you were given a boot, open it to apply the ice pack. Continue with ice packs 34 times a day for the next two days, then as needed for the relief of pain and swelling. You may use acetaminophen or ibuprofen to control pain, unless another pain medicine was prescribed. If you have chronic liver or kidney disease or ever had a stomach ulcer or GI bleeding, talk with your doctor before using these medicines. You may return to sports after healing, when you can run without pain. A sprained ankle is at risk for re-injury during the first six weeks. During that time, protect your ankle with an in-shoe splint that prevents tilting of your ankle from side to side. This is very important if you do active work or play sports during that time. Follow-up care Any X-rays you had today dont show any broken bones, breaks, or fractures. Sometimes fractures dont show up on the first X-ray. Bruises and sprains can sometimes hurt as much as a fracture. These injuries can take time to heal completely. If your symptoms dont improve or they get worse, talk with your doctor. You may need a repeat X-ray. When to seek medical care Get prompt medical attention if any of the following occur: The plaster cast or splint gets wet or soft The fiberglass cast or splint gets wet and does not dry for 24 hours Pain or swelling increases, or redness appears Toes become cold, blue, numb or tingly Re-injure your ankle Crutch Walking Crutch Adjustment Make sure the crutches you use are adjusted to fit you. When you stand, there should be room to fit 2-3 fingers between the top of the crutch and your armpit. Your elbow should be slightly bent when holding the hand electroencephalogram technologist. Crutch Walking: Place the crutches forward 12" in front of and 6" to the side of your feet. Lean your weight forward as you push down on the handgrips. Your weight should be on your hands and yourstrong leg, not your armpits . Let your body swing through, landing on the strong leg. Advance the crutches forward again. The crutch and the injured leg should move together. Going Up Steps: ("Up with the good") With both crutches on the same step as your feet, push down on the handgrips. Balancing with very light pressure on the weak leg, let your hands support your weight as you raise your strong leg onto the next higher step. Transfer all your weight to your strong leg (still bent) as you move the crutches up to the next step alongside the strong leg. With your weight evenly balanced on the two crutches and your strong leg, straighten your strong knee as you raise the weak leg up to the next step. Going Down Steps: ("Down with the bad") With both crutches on the same step as your feet, push down on the handgrips. With your weight evenly balanced on the two crutches and your strong leg, bend your strong knee as you lower the weak leg down to the next step. Let your strong leg support you (still bent) as you move the crutches down alongside the weak leg. Transfer your weight to your hands, balancing with very light pressure on the weak leg as you lower your strong leg alongside your weak leg. Tenders.es Sp-Walker Boot Traditional splints and casts for the foot and ankle protect the injury by preventing movement at the joints. However, many injuries heal better and faster if the injured joint can be moved, while protected at the same time. This is the reason for using an Tenders.es Walker boot. This is a short boot that provides support and protection to the foot and ankle while allowing you to walk. It contains padded air cells that provide compression and help circulation. It is used for both foot and ankle injuries - both sprains and minor fractures. Ankle and foot sprains can take 4-6 weeks to heal. Persons with severe injuries or over age 60 may require more time to heal. During that time, you are prone to re-injury by suddenly twisting your foot or ankle again while the ligaments are still weak. When treating a sprain, the One[employer] Walker boot should be worn whenever walking for at least four weeks, or as long as you continue to have ankle pain. Talk to your doctor for specific advice about the treatment of your condition. Air-Stirrup and SP-Walker are trademarks of [email or web address]. For more information about their products, see [email or web address].IActionable. Hydrocodone Bitartrate, Acetaminophen Oral tablet What is this medicine? ACETAMINOPHEN; HYDROCODONE (a set a RYDER gwendolyn fen; bella droe KOSanford done) is a pain reliever. It is used to treat mild to moderate pain. How should I use this medicine? Take this medicine by mouth. Swallow it with a full glass of water. Follow the directions on the prescription label. If the medicine upsets your stomach, take the medicine with food or milk. Do not take more than you are told to take. Talk to your transmission rebuilder regarding the use of this medicine in children. This medicine is not approved for use in children. What side effects may I notice from receiving this medicine? Side effects that you should report to your doctor or health health care technician as soon as possible: allergic reactions like skin rash, itching or hives, swelling of the face, lips, or tongue breathing problems confusion feeling faint or lightheaded, falls stomach pain yellowing of the eyes or skin Side effects that usually do not require medical attention (report to your doctor or health health care technician if they continue or are bothersome): nausea, vomiting stomach upset What may interact with this medicine? alcohol antihistamines isoniazid medicines for depression, anxiety, or psychotic disturbances medicines for sleep muscle relaxants naltrexone narcotic medicines (opiates) for pain phenobarbital ritonavir tramadol What if I miss a dose? If you miss a dose, take it as soon as you can. If it is almost time for your next dose, take only that dose. Do not take double or extra doses. Where should I keep my medicine? Keep out of the reach of children. This medicine can be abused. Keep your medicine in a safe place to protect it from theft. Do not share this medicine with anyone. Selling or giving away this medicine is dangerous and against the law. Store at room temperature between 15 and 30 degrees C (59 and 86 degrees F). Protect from light. Keep container tightly closed. Throw away any unused medicine after the expiration date. Discard unused medicine and used packaging carefully. Pets and children can be harmed if they find used or lost packages. What should I tell my health care provider before I take this medicine? They need to know if you have any of these conditions: brain tumor Crohn's disease, inflammatory bowel disease, or ulcerative colitis drink more than 3 alcohol-containing drinks per day drug abuse or addiction head injury heart or circulation problems kidney disease or problems going to the bathroom liver disease lung disease, asthma, or breathing problems an unusual or allergic reaction to acetaminophen, hydrocodone, other opioid analgesics, other medicines, foods, dyes, or preservatives or trying to get breast-feeding What should I watch for while using this medicine? Tell your doctor or health health care technician if your pain does not go away, if it gets worse, or if you have new or a different type of pain. You may develop tolerance to the medicine. Tolerance means that you will need a higher dose of the medicine for pain relief. Tolerance is normal and is expected if you take the medicine for a long time. Do not suddenly stop taking your medicine because you may develop a severe reaction. Your body becomes used to the medicine. This does NOT mean you are addicted. Addiction is a behavior related to getting and using a drug for a non-medical reason. If you have pain, you have a medical reason to take pain medicine. Your doctor will tell you how much medicine to take. If your doctor wants you to stop the medicine, the dose will be slowly lowered over time to avoid any side effects. You may get drowsy or dizzy when you first start taking the medicine or change doses. Do not drive, use machinery, or do anything that may be dangerous until you know how the medicine affects you. Stand or sit up slowly. There are different types of narcotic medicines (opiates) for pain. If you take more than one type at the same time, you may have more side effects. Give your health care provider a list of all medicines you use. Your doctor will tell you how much medicine to take. Do not take more medicine than directed. Call emergency for help if you have problems breathing. The medicine will cause constipation. Try to have a bowel movement at least every 2 to 3 days. If you do not have a bowel movement for 3 days, call your doctor or health health care technician. Too much acetaminophen can be very dangerous. Do not take Tylenol (acetaminophen) or medicines that contain acetaminophen with this medicine. Many non-prescription medicines contain acetaminophen. Always read the labels carefully. You have been given the following additional information: Sprain, Ankle, With X-Ray Crutch Walking Walker Boot Hydrocodone Bitartrate, Acetaminophen Oral tablet No weight bearing on right leg until released. (Electronically signed by Jesus Zhang Dr. 07/04/2016 13:19)
--- NOTE | 2016-07-04 13:54 | ED MAR SUMMARY ---
..... Medication Administration Record [facility] [address] [place] [address] Patient: STEVE MORTON Visit ID: [id number] 71y, F Weight: 91.6 kg Height/Length: 63 in BMI: 35.8 ALLERGIES: No Known Drug Allergy Given 13:33 07/04/2016 Evette Hsieh R.N. Medication Administered: HYDROCODONE-APAP [PO] (HYDROCODONE-ACETAMINOPHEN), Dose: 1 tab 5/325 mg Tablets PO. Medication Ordered: Hydrocodone-APAP PO 5/325 mg (NOW, HIGH ALERT MEDICATION).
--- NOTE | 2016-07-04 13:54 | ED MED RECONCILIATION SUMMARY ---
Patient: STEVE MORTON Medication Reconciliation Report [facility] VisitID: [id number] [address] [place] [address] 71y, F Registration Date/Time: 07/04/2016 Weight: 91.6 kg Height/Length: 63 in. BMI: 35.8 ALLERGIES: No Known Drug Allergy The patient's Home Medications are listed below: CONTINUE TAKING THE FOLLOWING MEDICATIONS: Amitriptyline HCl Oral Amitriptyline HCl Oral Amitriptyline HCl Oral Ibuprofen Oral Lisinopril Oral Zoloft Oral The source(s) of the original Home Medication information: patient The following Medications were given to the patient in the Emergency Department: Hydrocodone-APAP [PO] PO 1 tab, administered: 07/04/2016 1:33:00 PM The following Medications were prescribed to the patient: Hydrocodone/APAP 5mg / 325mg: take 1 orally every 6 hours as needed for pain. Dispense ten (10). No refill. -- Jesus Zhang Dr.
== END 2016-07-04 13:53 | disposition home or self-care (01) ==
LOC: ED SRH 11:39
DX: S93.401A Sprain of unspecified ligament of right ankle, initial encounter (principal); W10.8XXA Fall (on) (from) other stairs and steps, initial encounter; Y92.009 Unspecified place in unspecified non-institutional (private) residence as the place of occurrence of the external cause; Y93.01 Activity, walking, marching and hiking; Y99.9 Unspecified external cause status; I10 Essential (primary) hypertension; I51.9 Heart disease, unspecified; Z79.899 Other long term (current) drug therapy

== ENCOUNTER 2016-08-30 18:57 | Emergency (ER) | payer OTHER ==
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
--- NOTE | 2016-08-30 21:37 | ED ORDER SUMMARY ---
..... Patient: STEVE MORTON OrderSheet [facility] VisitID: [id number] [place] [address] 71y, F Registration Date/Time: 08/30/2016 ORDER SHEET Weight: 91.6 kg Allergies: No Known Drug Allergy GENERAL ORDERS: CT Head wo Cont Urgent (20:06 08/30/2016 Dayne Can) (Ack 20:09 OSnell) (21:42 HSoule) CT Cervical Spine wo Cont Urgent (20:08/30/2016 Dayne Can) (Ack 20:09 OSnell) (21:42 HSoule) MEDICATION ORDERS: Percocet PO 5/325 mg (HIGH ALERT MEDICATION, NOW) (20:07 08/30/2016 Dayne Can) (20:12 EBromy) Zofran ODT PO 4 mg (NOW) (20:07 08/30/2016 Dayne Can) (20:12 EBonkandi) Flexeril PO 10 mg (NOW) (21:33 08/30/2016 Dayne Can) (Ack 21:38 HSoule) (21:42 HSoule) IV FLUIDS: ORDER SHEET NOTES: [Electronically signed by Ros David (22:00 08/30/2016)] [Electronically signed by Kaleb Delgado Dr. (04:29 09/07/2016)] [Electronically locked/signed by Ros David (22:00 08/30/2016)]
--- NOTE | 2016-08-30 21:37 | ED ORDER SUMMARY ---
..... Patient: STEVE MORTON OrderSheet [facility] VisitID: [id number] [place] [address] 71y, F Registration Date/Time: 08/30/2016 ORDER SHEET Weight: 91.6 kg Allergies: No Known Drug Allergy GENERAL ORDERS: CT Head wo Cont Urgent (20:06 08/30/2016 Dayne Can) (Ack 20:09 OSnell) (21:42 HSoule) CT Cervical Spine wo Cont Urgent (20:08/30/2016 Dayne Can) (Ack 20:09 OSnell) (21:42 HSoule) MEDICATION ORDERS: Percocet PO 5/325 mg (HIGH ALERT MEDICATION, NOW) (20:07 08/30/2016 Dayne Can) (20:12 EBromy) Zofran ODT PO 4 mg (NOW) (20:07 08/30/2016 Dayne Can) (20:12 EBonkandi) Flexeril PO 10 mg (NOW) (21:33 08/30/2016 Dayne Can) (Ack 21:38 HSoule) (21:42 HSoule) IV FLUIDS: ORDER SHEET NOTES: [Electronically signed by Ros David (22:00 08/30/2016)] [Electronically signed by Kaleb Delgado Dr. (04:29 09/07/2016)] [Electronically locked/signed by Ros David (22:00 08/30/2016)]
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
--- NOTE | 2016-09-07 04:29 | ED MAR SUMMARY ---
..... Medication Administration Record [facility] [address] [place] [address] Patient: STEVE MORTON Visit ID: [id number] 71y, F Weight: 91.6 kg Height/Length: 63 in BMI: 35.8 ALLERGIES: No Known Drug Allergy Given 20:12 08/30/2016 Ros David, Medication Administered: PERCOCET [PO] (OXYCODONE-ACETAMINOPHEN), Dose: 1 tab 10/650 mg Tablets PO. Medication Ordered: Percocet PO 5/325 mg (HIGH ALERT MEDICATION, NOW). Given 20:12 08/30/2016 Ros David, Medication Administered: ZOFRAN ODT [PO] (ONDANSETRON), Dose: 4 mg PO. Medication Ordered: Zofran ODT PO 4 mg (NOW). Given 21:42 08/30/2016 Dionna Mayberry, Medication Administered: FLEXERIL [PO] (CYCLOBENZAPRINE HCL), Dose: 10 mg Tablets PO. Medication Ordered: Flexeril PO 10 mg (NOW).
--- NOTE | 2016-09-07 04:29 | ED MED RECONCILIATION SUMMARY ---
Patient: STEVE MORTON Medication Reconciliation Report [facility] VisitID: [id number] [place] [address] 71y, F Registration Date/Time: 08/30/2016 Weight: 91.6 kg Height/Length: 63 in. BMI: 35.8 ALLERGIES: No Known Drug Allergy The patient's Home Medications are listed below: CONTINUE TAKING THE FOLLOWING MEDICATIONS: Amitriptyline HCl Oral Atenolol Oral Ibuprofen Oral Sertraline HCl Oral Simvastatin Oral The source(s) of the original Home Medication information: Not obtained. The following Medications were given to the patient in the Emergency Department: Percocet [PO] PO 1 tab, administered: 08/30/2016 8:12:00 PM Zofran ODT [PO] PO 4 mg, administered: 08/30/2016 8:12:00 PM Flexeril [PO] PO 10 mg, administered: 08/30/2016 9:42:00 PM The following Medications were prescribed to the patient: Zofran (orally disintegrating tablets) 4 mg: take 1 orally every 8 hours as needed for nausea and vomiting. Dispense fifteen (15). No refill. Substitution is permissible. -- Kaleb Delgado Dr. Flexeril 10 mg: take 1 orally every 8 hours as needed for muscle spasm or pain. Dispense thirty (30). No refills. Substitution is permissible. -- Kaleb Delgado Dr. Percocet 5 mg/325 mg: take 1 tablet orally every 6 hours as needed for pain. Dispense twelve (12). No refill. Substitution is permissible. -- Kaleb Delgado Dr.
--- NOTE | 2016-09-07 04:29 | ED MAR SUMMARY ---
..... Medication Administration Record [facility] [address] [place] [address] Patient: STEVE MORTON Visit ID: [id number] 71y, F Weight: 91.6 kg Height/Length: 63 in BMI: 35.8 ALLERGIES: No Known Drug Allergy Given 20:12 08/30/2016 Ros David, Medication Administered: PERCOCET [PO] (OXYCODONE-ACETAMINOPHEN), Dose: 1 tab 10/650 mg Tablets PO. Medication Ordered: Percocet PO 5/325 mg (HIGH ALERT MEDICATION, NOW). Given 20:12 08/30/2016 Ros David, Medication Administered: ZOFRAN ODT [PO] (ONDANSETRON), Dose: 4 mg PO. Medication Ordered: Zofran ODT PO 4 mg (NOW). Given 21:42 08/30/2016 Dionna Mayberry, Medication Administered: FLEXERIL [PO] (CYCLOBENZAPRINE HCL), Dose: 10 mg Tablets PO. Medication Ordered: Flexeril PO 10 mg (NOW).
--- NOTE | 2016-09-07 04:29 | ED MED RECONCILIATION SUMMARY ---
Patient: STEVE MORTON Medication Reconciliation Report [facility] VisitID: [id number] [place] [address] 71y, F Registration Date/Time: 08/30/2016 Weight: 91.6 kg Height/Length: 63 in. BMI: 35.8 ALLERGIES: No Known Drug Allergy The patient's Home Medications are listed below: CONTINUE TAKING THE FOLLOWING MEDICATIONS: Amitriptyline HCl Oral Atenolol Oral Ibuprofen Oral Sertraline HCl Oral Simvastatin Oral The source(s) of the original Home Medication information: Not obtained. The following Medications were given to the patient in the Emergency Department: Percocet [PO] PO 1 tab, administered: 08/30/2016 8:12:00 PM Zofran ODT [PO] PO 4 mg, administered: 08/30/2016 8:12:00 PM Flexeril [PO] PO 10 mg, administered: 08/30/2016 9:42:00 PM The following Medications were prescribed to the patient: Zofran (orally disintegrating tablets) 4 mg: take 1 orally every 8 hours as needed for nausea and vomiting. Dispense fifteen (15). No refill. Substitution is permissible. -- Kaleb Delgado Dr. Flexeril 10 mg: take 1 orally every 8 hours as needed for muscle spasm or pain. Dispense thirty (30). No refills. Substitution is permissible. -- Kaleb Delgado Dr. Percocet 5 mg/325 mg: take 1 tablet orally every 6 hours as needed for pain. Dispense twelve (12). No refill. Substitution is permissible. -- Kaleb Delgado Dr.
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
== END 2016-08-30 22:00 | disposition home or self-care (01) ==
LOC: ED SRH 18:57
DX: S16.1XXA Strain of muscle, fascia and tendon at neck level, initial encounter (principal); V43.51XA Car driver injured in collision with sport utility vehicle in traffic accident, initial encounter; Y93.9 Activity, unspecified; Y92.410 Unspecified street and highway as the place of occurrence of the external cause; Y99.9 Unspecified external cause status; I10 Essential (primary) hypertension; K21.9 Gastro-esophageal reflux disease without esophagitis

== ENCOUNTER 2016-09-23 07:58 | Outpatient (CLI) | payer OTHER ==
--- NOTE | 2016-09-23 12:18 | DIAGNOSTIC IMAGING REPORT ---
PROCEDURE: MG BILATERAL SCREENING W/CAD INDICATION: Screening. Family history breast carcinoma (cousins, daughter). TECHNIQUE: Bilateral CC and MLO digital views. COMPARISON: Compared to 06/22/2015, 01/12/2014, and 12/01/2012. FINDINGS: Computer-aided detection applied. Mildly dense. No change. IMPRESSION: 1. Negative mammogram. RESULT CODE: 1- Negative. A. A negative report should not delay biopsy if a dominant or clinically suspicious mass is present. 10-15% of cancers are not identified by x-ray. B. A negative report may reinforce clinical impression. C. Adenosis and dense breasts may obscure an underlying neoplasm. D. False positive reports average 6-10%. E.. A yearly screening mammogram is recommended. A reminder letter will be scheduled.
== END 2016-09-23 23:00 | disposition home or self-care (01) ==
LOC: MAM SRH 07:58
DX: Z12.31 Encounter for screening mammogram for malignant neoplasm of breast (principal); Z80.3 Family history of malignant neoplasm of breast

== ENCOUNTER 2016-10-08 13:02 | Outpatient (CLI) | payer OTHER | END 2016-10-08 23:00 | disposition home or self-care (01) | LOC: RT SRH 13:02 | PROC: 4A02XM4 Measurement of Cardiac Total Activity, External Approach (ICD-10-PCS; principal; 2016-10-08) | PROC: 3E073KZ Introduction of Other Diagnostic Substance into Coronary Artery, Percutaneous Approach (ICD-10-PCS; principal; 2016-10-08) | DX: R07.9 Chest pain, unspecified (principal) ==